=== PATIENT | male | born 1970 | race African-American/Black ===

== ENCOUNTER 2021-06-21 16:03 | Inpatient (IN) | payer OTHER ==
[2021-06-21] MEDS ORDERED: ACETAMINOPHEN 1000 MG/100 ML VIAL IVPB ONE (17:43)
[2021-06-21] MEDS ORDERED: morphine CARPU-JECT 4 MG/1 ML DISP.SYRIN IVPUSH ONE ×2 (17:55→23:15)
[2021-06-21] MEDS ORDERED: ACETAMINOPHEN INJECTION 100 ML IVPB ONE (18:07)
[2021-06-21] MEDS ORDERED: morphine SULFATE 4 MG/ML VIAL ONE ×2 (18:07→23:36)
[2021-06-21] MEDS ORDERED: ONDANSETRON 4 MG/2 ML VIAL IVPB ONE (18:11)
[2021-06-21] MEDS ORDERED: CEFTRIAXONE 1,000 MG in DEXTROSE 5%-WATER - 50 ML IVPB ONE (18:41)
[2021-06-21 18:49] LABS: BASO % 0.5 % (0-2.0); EOS % 0.8 % (0-4.5); HEMATOCRIT 42.2 % (35.4-49); HEMOGLOBIN 13.9 GM/dL (11.7-16.9); LYMPH % 36.2 % (8-40); MCH 30.8 pg (25.7-33.7); MEAN CELL VOLUME 93.4 fl (80-96); MEAN PLT VOLUME 8.7 fl (7.5-11.1); MONO % 7.4 % (3.8-10.2); NEUT % 55.1 % (42.8-82.8); PLATELET COUNT 255 10^3/uL (134-434); RBC 4.52 M/mm3 (4.00-5.60); WHITE BLOOD COUNT 6.7 K/mm3 (4.0-10.0)
[2021-06-21 19:09] LABS: CALCIUM 9.5 mg/dL (8.5-10.1)
[2021-06-21 19:10] LABS: INR 0.97 (0.83-1.09); PROTHROMBIN TIME (PATIENT) 11.4 SEC (9.7-13.0)
[2021-06-21 19:11] LABS: ALBUMIN 3.7 g/dl (3.4-5.0)
[2021-06-21 19:14] LABS: CREATININE 1.7 mg/dL (0.55-1.3)
[2021-06-21 19:15] LABS: BILIRUBIN,TOTAL 0.4 mg/dL (0.2-1); TOT PROT 7.6 g/dl (6.4-8.2)
[2021-06-21] MEDS ORDERED: SODIUM CHLORIDE 1,000 ML IV SCH (19:15)
[2021-06-21] MEDS ORDERED: CEFTRIAXONE 1 GM/50 ML BAG ONE (20:48)
[2021-06-21] MEDS ORDERED: BICTEGRAV/EMTRICIT/TENOFOV (BIKTARVY) 50-200-25 MG TABLET PO SCH (21:30)
[2021-06-21 21:50] LABS: EPI CELLS 5 /uL (0-25.1); HYALINE CASTS 0 /uL (0-3.1); PH,URINE 6.5 (5.0-8.0); URINE APPEARANCE CLOUDY; URINE BACTERIA 2 /uL (0-1359); URINE BILIRUBIN NEGATIVE (NEGATIVE); URINE COLOR DK YELLOW; URINE GLUCOSE (UA) NEGATIVE (NEGATIVE); URINE KETONE TRACE (NEGATIVE); URINE LEUK ESTERASE TRACE (NEGATIVE); URINE NITRITE NEGATIVE (NEGATIVE); URINE PROTEIN 2+ (NEGATIVE); URINE RBC 9300 /uL (0-23.9); URINE UROBILINOGEN 0.2 mg/dL (0.2-1.0); URINE WBC 18 /uL (0-25.8)
[2021-06-21] MEDS ORDERED: ACETAMINOPHEN 1000 MG/100 ML VIAL IVPB PRN (23:31)
[2021-06-22] MEDS ORDERED: morphine SULFATE 4 MG/ML VIAL IVPUSH PRN ×3 (03:00→18:27)
[2021-06-22 03:24] VITALS: BMI 29.5
[2021-06-22] MEDS ORDERED: cefTRIAXone SODIUM 1 GM VIAL ONE (05:48)
[2021-06-22] MEDS ORDERED: DEXTROSE 5%-WATER - 50 ML IVPB ONE (05:49)
[2021-06-22] MEDS ORDERED: CEFTRIAXONE 1 GM in DEXTROSE 5%-WATER - 50 ML IVPB ONE (06:00)
[2021-06-22 09:32] LABS: BASO % 0.5 % (0-2.0); EOS % 2.1 % (0-4.5); LYMPH % 39.1 % (8-40); MCH 30.9 pg (25.7-33.7); MCHC 33.3 g/dl (32.0-35.9); MEAN CELL VOLUME 92.8 fl (80-96); MEAN PLT VOLUME 8.3 fl (7.5-11.1); MONO % 9.2 % (3.8-10.2); NEUT % 49.1 % (42.8-82.8); PLATELET COUNT 218 10^3/uL (134-434); RDW 13.9 % (11.9-15.9); WHITE BLOOD COUNT 5.1 K/mm3 (4.0-10.0)
[2021-06-22] MEDS ORDERED: BACITRACIN 15 GM TUBE TOPICAL OINTMENT ONE (11:16)
[2021-06-22 11:36] LABS: ALBUMIN 3.2 g/dl (3.4-5.0); BILIRUBIN,TOTAL 0.3 mg/dL (0.2-1); BLOOD UREA NITROGEN 10.5 mg/dL (7-18); CALCIUM 8.5 mg/dL (8.5-10.1); CREATININE 1.3 mg/dL (0.55-1.3); MAGNESIUM 2.3 mg/dL (1.8-2.4); TOT PROT 6.4 g/dl (6.4-8.2)
[2021-06-22] MEDS ORDERED: MIDAZOLAM HCL 2 MG/2 ML SINGLE DOSE VIAL ONE (11:49)
[2021-06-22] MEDS ORDERED: PROPOFOL 20 ML ONE ×4 (11:51→12:39)
[2021-06-22] MEDS ORDERED: SUCCINYLCHOLINE CHLORIDE 200 MG/10 ML SYRINGE ONE (12:28)
[2021-06-22] MEDS ORDERED: ceFAZolin SODIUM 1 GM VIAL IVPB ONE (12:30)
[2021-06-22] MEDS ORDERED: ceFAZolin SODIUM 1 GM VIAL ONE (12:36)
[2021-06-22] MEDS ORDERED: ONDANSETRON 4 MG/2 ML VIAL IVPUSH PRN (13:58)
[2021-06-22] MEDS ORDERED: LACTATED RINGERS SOLUTION 1,000 ML IV SCH (14:00)
[2021-06-22] MEDS ORDERED: ACETAMINOPHEN 1000 MG/100 ML VIAL IVPB PRN (14:08)
[2021-06-22] MEDS ORDERED: SODIUM CHLORIDE 1,000 ML IV SCH (14:08)
[2021-06-23] MEDS: BICTEGRAV/EMTRICIT/TENOFOV (BIKTARVY) 50-200-25 MG TABLET PO SCH ×2 (00:12→21:36)
[2021-06-23 06:44] LABS: EPI CELLS 3 /uL (0-25.1); HYALINE CASTS 0 /uL (0-3.1); URINE APPEARANCE CLEAR; URINE BACTERIA 1 /uL (0-1359); URINE BILIRUBIN NEGATIVE (NEGATIVE); URINE COLOR YELLOW; URINE GLUCOSE (UA) NEGATIVE (NEGATIVE); URINE KETONE NEGATIVE (NEGATIVE); URINE LEUK ESTERASE TRACE (NEGATIVE); URINE NITRITE NEGATIVE (NEGATIVE); URINE PROTEIN NEGATIVE (NEGATIVE); URINE RBC 71 /uL (0-23.9); URINE UROBILINOGEN 0.2 mg/dL (0.2-1.0); URINE WBC 9 /uL (0-25.8)
[2021-06-23 08:41] LABS: BASO % 0.3 % (0-2.0); EOS % 0.2 % (0-4.5); HEMATOCRIT 37.9 % (35.4-49); HEMOGLOBIN 12.6 GM/dL (11.7-16.9); LYMPH % 28.1 % (8-40); MCHC 33.3 g/dl (32.0-35.9); MEAN CELL VOLUME 92.9 fl (80-96); MEAN PLT VOLUME 8.1 fl (7.5-11.1); MONO % 7.6 % (3.8-10.2); NEUT % 63.8 % (42.8-82.8); PLATELET COUNT 210 10^3/uL (134-434); RBC 4.08 M/mm3 (4.00-5.60); RDW 13.8 % (11.9-15.9); WHITE BLOOD COUNT 6.5 K/mm3 (4.0-10.0)
[2021-06-23] MEDS: oxyCODONE HCL 5 MG TABLET PO PRN ×2 (09:48→15:05)
[2021-06-23] MEDS: DOCUSATE SODIUM 100 MG CAPSULE (FP) PO SCH (09:49)
[2021-06-23] MEDS ORDERED: BICTEGRAV/EMTRICIT/TENOFOV (BIKTARVY) 50-200-25 MG TABLET PO SCH (10:00)
[2021-06-23 11:05] LABS: BLOOD UREA NITROGEN 8.1 mg/dL (7-18); CALCIUM 8.5 mg/dL (8.5-10.1); CREATININE 1.2 mg/dL (0.55-1.3)
[2021-06-23] MEDS ORDERED: DEXTROSE 5%-WATER - 50 ML IVPB ONE (14:58)
[2021-06-23] MEDS ORDERED: cefTRIAXone SODIUM 1 GM VIAL ONE (14:58)
[2021-06-23] MEDS: CEFTRIAXONE 1 GM in DEXTROSE 5%-WATER - 50 ML IVPB SCH (15:00)
[2021-06-23] MEDS ORDERED: PT OWN MED DRAWER 7, Y5N ONE (21:00)
[2021-06-24] MEDS ORDERED: cefTRIAXone SODIUM 1 GM VIAL ONE (08:43)
[2021-06-24] MEDS ORDERED: DEXTROSE 5%-WATER - 50 ML IVPB ONE (08:43)
[2021-06-24] MEDS: CEFTRIAXONE 1 GM in DEXTROSE 5%-WATER - 50 ML IVPB SCH (09:03)
[2021-06-24] MEDS: oxyCODONE HCL 5 MG TABLET PO PRN (09:04)
[2021-06-24] MEDS: DOCUSATE SODIUM 100 MG CAPSULE (FP) PO SCH (09:04)
[2021-06-24 11:00] VITALS: TEMP 98.2
[2021-06-24 14:41] VITALS: BP 115/60; PULSE 62
== END 2021-06-24 22:05 | disposition home or self-care (01) | DRG 481 ==
LOC: JER 16:03 → JERBED 19:41 → J6S 06-22 02:27
PROVIDERS: ADMIT Internal Medicine; ATTEND Internal Medicine
PROC: 0V9 Male Reproductive System, Drainage (ICD-10-PCS; 2021-06-22)
PROC: 0VQS0ZZ Repair Penis, Open Approach (ICD-10-PCS; principal; 2021-06-22 13:00)
DX: S31.21XA Laceration without foreign body of penis, initial encounter (principal); I86.1 Scrotal varices; R31.9 Hematuria, unspecified; S30.21XA Contusion of penis, initial encounter; Z21 Asymptomatic human immunodeficiency virus [HIV] infection status; N17.9 Acute kidney failure, unspecified; E86.0 Dehydration; N13.8 Other obstructive and reflux uropathy; L89.892 Pressure ulcer of other site, stage 2; R33.9 Retention of urine, unspecified; Z85.72 Personal history of non-Hodgkin lymphomas; X58.XXXA Exposure to other specified factors, initial encounter; Y92.098 Other place in other non-institutional residence as the place of occurrence of the external cause
CPT/HCPCS: 36415; 76775-TC; 76870-TC; 80048; 80053; 81003; 82436; 82550; 82553; 82570; 83735; 84100; 84133; 84300; 85025; 85610; 85730; 86850; 86900; 86901; 87086; 88304-TC; 93005; 93010; 94760; 97116-GP; 97161-GP; 99285-25; C9803; J0131; U0003; U0005

== ENCOUNTER 2021-06-25 11:05 | Emergency (ER) | payer OTHER ==
[2021-06-25 11:17] VITALS: PULSE 68; TEMP 98.8; BMI 29.5
[2021-06-25] MEDS ORDERED: oxyCODONE HCL 5 MG TABLET PO ONE (11:30)
[2021-06-25] MEDS ORDERED: oxyCODONE HCL 5 MG TABLET ONE (11:53)
[2021-06-25 12:20] LABS: PH,URINE 7.5 (5.0-8.0); URINE APPEARANCE CLEAR; URINE BILIRUBIN NEGATIVE (NEGATIVE); URINE COLOR YELLOW; URINE GLUCOSE (UA) NEGATIVE (NEGATIVE); URINE KETONE NEGATIVE (NEGATIVE); URINE LEUK ESTERASE NEGATIVE (NEGATIVE); URINE NITRITE NEGATIVE (NEGATIVE); URINE PROTEIN NEGATIVE (NEGATIVE); URINE UROBILINOGEN 0.2 mg/dL (0.2-1.0)
[2021-06-25 13:09] VITALS: BP 128/74
== END 2021-06-25 13:09 | disposition home or self-care (01) ==
LOC: JER 11:05
DX: N48.29 Other inflammatory disorders of penis (principal)
CPT/HCPCS: 81003; 99283-25

== ENCOUNTER 2021-08-31 15:27 | Inpatient (IN) | payer OTHER ==
[2021-08-31 16:40] LABS: HEMATOCRIT 43.2 % (35.4-49); HEMOGLOBIN 13.7 GM/dL (11.7-16.9); MCH 29.3 pg (25.7-33.7); MCHC 31.8 g/dl (32.0-35.9); MEAN CELL VOLUME 92.3 fl (80-96); MEAN PLT VOLUME 8.2 fl (7.5-11.1); PLATELET COUNT 221 10^3/uL (134-434); RBC 4.68 M/mm3 (4.00-5.60); RDW 14.4 % (11.9-15.9); WHITE BLOOD COUNT 4.5 K/mm3 (4.0-10.0)
[2021-08-31 16:42] LABS: PROTHROMBIN TIME (PATIENT) 11.5 SEC (9.7-13.0)
[2021-08-31 16:44] LABS: ACTIVATED PTT 29.9 SECONDS (25.2-36.5)
[2021-08-31 17:01] LABS: CALCIUM 9.6 mg/dL (8.5-10.1)
[2021-08-31 17:02] LABS: ALBUMIN 4.1 g/dl (3.4-5.0); BLOOD UREA NITROGEN 13.1 mg/dL (7-18)
[2021-08-31 17:05] LABS: CREATININE 1.4 mg/dL (0.55-1.3)
[2021-08-31 17:06] LABS: BILIRUBIN,TOTAL 1.1 mg/dL (0.2-1)
[2021-08-31 17:07] LABS: TOT PROT 7.5 g/dl (6.4-8.2)
[2021-08-31] MEDS ORDERED: morphine CARPU-JECT 2 MG/1 ML DISP.SYRIN IVPUSH ONE (17:18)
[2021-08-31 17:55] LABS: ANISOCYTOSIS 0; MACROCYTOSIS 0; PLATELET ESTIMATE NORMAL
[2021-08-31] MEDS ORDERED: morphine CARPU-JECT 4 MG/1 ML DISP.SYRIN IVPUSH ONE (18:58)
[2021-08-31] MEDS ORDERED: LIDOCAINE HCL 2% JELLY 10 ML CARTRIDGE ONE (19:01)
[2021-08-31] MEDS ORDERED: LIDOCAINE HCL 2% JELLY 10 ML CARTRIDGE PR ONE (19:14)
[2021-08-31] MEDS ORDERED: LIDOCAINE HCL 1%, 10 MG/ML (20ML VIAL) ONE (19:31)
[2021-08-31] MEDS ORDERED: CEFTRIAXONE 1,000 MG in DEXTROSE 5%-WATER - 50 ML IVPB ONE (20:06)
[2021-08-31] MEDS ORDERED: CEFTRIAXONE 1 GM/50 ML BAG ONE (20:24)
[2021-08-31] MEDS: BICTEGRAV/EMTRICIT/TENOFOV (BIKTARVY) 50-200-25 MG TABLET PO SCH (21:54)
[2021-08-31 22:06] LABS: EPI CELLS 9 /uL (0-25.1); HYALINE CASTS 1 /uL (0-3.1); PH,URINE 8.5 (5.0-8.0); URINE APPEARANCE CLOUDY; URINE BACTERIA 9 /uL (0-1359); URINE BILIRUBIN NEGATIVE (NEGATIVE); URINE COLOR ORANGE; URINE GLUCOSE (UA) NEGATIVE (NEGATIVE); URINE KETONE NEGATIVE (NEGATIVE); URINE LEUK ESTERASE TRACE (NEGATIVE); URINE NITRITE NEGATIVE (NEGATIVE); URINE PROTEIN 1+ (NEGATIVE); URINE RBC 7324 /uL (0-23.9); URINE UROBILINOGEN 0.2 mg/dL (0.2-1.0); URINE WBC 11 /uL (0-25.8)
[2021-08-31 22:45] LABS: METHADONE, UR NEGATIVE (NEGATIVE); PHENCYCLIDINE,URINE NEGATIVE (NEGATIVE); URINE BENZODIAZEPINES NEGATIVE (NEGATIVE)
[2021-08-31 22:46] LABS: COCAINE, UR NEGATIVE (NEGATIVE)
[2021-08-31 22:47] LABS: OPIATES, URI POSITIVE (NEGATIVE); URINE AMPHETAMINES NEGATIVE (NEGATIVE); URINE BARBITURATES NEGATIVE (NEGATIVE)
[2021-08-31] MEDS ORDERED: ACETAMINOPHEN 1000 MG/100 ML BAG IVPB ONE (23:33)
[2021-08-31] MEDS ORDERED: ACETAMINOPHEN INJECTION 100 ML IVPB ONE (23:38)
[2021-09-01 06:06] VITALS: BMI 29.5
[2021-09-01 07:52] LABS: HEMATOCRIT 41.6 % (35.4-49); HEMOGLOBIN 13.3 GM/dL (11.7-16.9); MCH 29.8 pg (25.7-33.7); MEAN PLT VOLUME 8.3 fl (7.5-11.1); PLATELET COUNT 209 10^3/uL (134-434); RBC 4.47 M/mm3 (4.00-5.60); RDW 14.6 % (11.9-15.9); WHITE BLOOD COUNT 4.3 K/mm3 (4.0-10.0)
[2021-09-01 08:41] LABS: CALCIUM 8.9 mg/dL (8.5-10.1)
[2021-09-01 08:42] LABS: ALBUMIN 3.4 g/dl (3.4-5.0); BLOOD UREA NITROGEN 14.9 mg/dL (7-18); MAGNESIUM 2.5 mg/dL (1.8-2.4); PHOSPHOROUS 4.2 mg/dL (2.5-4.9)
[2021-09-01 08:43] LABS: CREATININE 1.5 mg/dL (0.55-1.3)
[2021-09-01 08:44] LABS: TOT PROT 6.5 g/dl (6.4-8.2)
[2021-09-01] MEDS ORDERED: CEFTRIAXONE 1 GM in DEXTROSE 5%-WATER - 50 ML IVPB SCH (10:15)
[2021-09-01] MEDS ORDERED: SODIUM CHLORIDE 1,000 ML IV SCH (10:15)
[2021-09-01] MEDS ORDERED: DEXTROSE 5%-WATER - 50 ML IVPB ONE (10:22)
[2021-09-01] MEDS ORDERED: cefTRIAXone SODIUM 1 GM VIAL ONE (10:22)
[2021-09-01] MEDS ORDERED: ACETAMINOPHEN 325 MG TABLET (FP) PO PRN (10:50)
[2021-09-01] MEDS: BICTEGRAV/EMTRICIT/TENOFOV (BIKTARVY) 50-200-25 MG TABLET PO SCH (11:59)
[2021-09-01 14:31] VITALS: BP 122/65; PULSE 57; TEMP 98.9
[2021-09-01 15:45] LABS: CALCIUM 8.9 mg/dL (8.5-10.1)
[2021-09-01 15:48] LABS: CREATININE 1.5 mg/dL (0.55-1.3)
[2021-09-01] MEDS ORDERED: BICTEGRAV/EMTRICIT/TENOFOV (BIKTARVY) 50-200-25 MG TABLET PO SCH (22:00)
== END 2021-09-01 19:56 | disposition home or self-care (01) | DRG 468 ==
LOC: JER 15:27 → JERBED 18:07 → J6S 09-01 03:25
PROVIDERS: ADMIT Internal Medicine; ATTEND Internal Medicine
PROC: 0T9B30Z Drainage of Bladder with Drainage Device, Percutaneous Approach (ICD-10-PCS; principal; 2021-08-31)
DX: R33.9 Retention of urine, unspecified (principal); N17.9 Acute kidney failure, unspecified; B19.10 Unspecified viral hepatitis B without hepatic coma; N13.8 Other obstructive and reflux uropathy; Z21 Asymptomatic human immunodeficiency virus [HIV] infection status; R74.01 Elevation of levels of liver transaminase levels
CPT/HCPCS: 36415; 71045-TC-FY; 76775-TC; 80048; 80053; 80307; 81003; 83735; 84100; 85025; 85027; 85610; 85730; 86704; 86705; 86803; 86850; 86900; 86901; 87086; 87340; 87517; 93005; 93010; 99285-25; C9803; J0131; U0003; U0005

== ENCOUNTER 2021-11-08 18:47 | Emergency (ER) | payer BC, OTHER ==
[2021-11-08 19:04] VITALS: BP 118/72; PULSE 78; TEMP 98.7; BMI 30.6
[2021-11-08] MEDS ORDERED: CEFTRIAXONE 1 GM in DEXTROSE 5%-WATER - 100 ML IVPB ONE (21:31)
[2021-11-08] MEDS ORDERED: LIDOCAINE HCL 1%, 10 MG/ML (20ML VIAL) ONE (21:59)
== END 2021-11-08 23:09 | disposition home or self-care (01) ==
LOC: JER 18:47
DX: R33.9 Retention of urine, unspecified (principal)
CPT/HCPCS: 96374; 99284-25

== ENCOUNTER 2022-01-16 13:24 | Emergency (ER) | payer OTHER ==
[2022-01-16 13:28] VITALS: BP 112/75; PULSE 80; TEMP 98; BMI 30.6
== END 2022-01-16 18:05 | disposition home or self-care (01) ==
LOC: JER 13:24
DX: T83.518A Infection and inflammatory reaction due to other urinary catheter, initial encounter (principal)
CPT/HCPCS: 99283-25